=== PATIENT | male | born 1940 | race Hispanic/Latino ===

== ENCOUNTER 2018-07-19 06:23 | Day surgery (SDC) | payer MEDICARE ==
[2018-07-19] MEDS ORDERED: NACL 0.9% 1000 ML 1,000 ML IV SCH (07:00)
[2018-07-19] MEDS ORDERED: HURRICAINE ONE 20% TOPICAL SPRAY MM NR (07:00)
[2018-07-19 07:25] LABS: Basophils # (Auto) 0.1 K/mm3 (0.0-0.1); Basophils % (Auto) 1.1 % (0.0-1.8); Eosinophils # (Auto) 0.2 K/mm3 (0.0-0.4); Eosinophils % (Auto) 2.5 % (0.0-4.3); Hematocrit 41.7 % (35.5-45.6); Lymphocytes # (Auto) 2.3 K/mm3 (1.2-5.4); Lymphocytes % (Auto) 36.7 % (13.4-35.0); Mean Corpuscular HGB Conc 34 % (32-34); Mean Corpuscular Volume 95 fl (84-94); Monocytes # (Auto) 0.8 K/mm3 (0.0-0.8); Monocytes % (Auto) 13.4 % (0.0-7.3); Platelet Count 294 K/mm3 (140-440); Red Cell Distribution Width 14.5 % (13.2-15.2)
[2018-07-19 07:33] LABS: INR 0.97 (0.87-1.13); Partial Thromboplastin Time 21.6 Sec. (24.2-36.6)
[2018-07-19 07:42] LABS: BUN/Creatinine Ratio 10; Blood Urea Nitrogen 11 mg/dL (9-20); Calcium 9.1 mg/dL (8.4-10.2); Hemolysis Index 21
[2018-07-19] MEDS ORDERED: DIPRIVAN 10 MG/ML IV ONE (08:53)
[2018-07-19] MEDS ORDERED: DECADRON ONE (08:53)
[2018-07-19] MEDS ORDERED: VERSED ONE (08:53)
[2018-07-19] MEDS ORDERED: ZOFRAN ONE (08:53)
[2018-07-19] MEDS ORDERED: AMIDATE IV ONE (08:53)
--- NOTE | 2018-07-19 09:07 | Anesthesia Consultation ---
Anesthesia Consult and Med Hx - Airway Anesthetic Teeth Evaluation: Good ROM Head & Neck: Adequate Mental/Hyoid Distance: Adequate Mallampati Class: Class III Intubation Access Assessment: Probably Good - Pulmonary Exam CTA: Yes - Cardiac Exam Cardiac Exam: No Murmur - Pre-Operative Health Status ASA Pre-Surgery Classification: ASA3 Proposed Anesthetic Plan: MAC - Pulmonary Hx Smoking: Yes (ex smoker ) Hx Asthma: No Hx Respiratory Symptoms: No SOB: No COPD: No Home Oxygen Therapy: No Hx Pneumonia: No Hx Sleep Apnea: No - Cardiovascular System Hx Hypertension: Yes - Central Nervous System Hx Psychiatric Problems: Yes - Endocrine Hx Hypothyroidism: Yes - Other Systems Hx Cancer: No
--- NOTE | 2018-07-19 09:08 | Anesthesia Day of Surgery ---
Anesthesia Day of Surgery - Day of Surgery Patient Examined: Yes Patient H&P Reviewed: Yes Patient is NPO: Yes Beta Blockers: Yes Cardiac Clearance: No Pulmonary Clearance: No
--- NOTE | 2018-07-19 10:39 | Short Stay Summary ---
Short Stay Documentation Date of service: 07/19/18 - History H&P: obtained from office - Allergies and Medications Current Medications: Allergies No Known Allergies Allergy (Unverified 07/19/18 06:23) Home Medications Medication Instructions Recorded Confirmed Last Taken Type Apixaban [Eliquis] 5 mg PO BID 07/19/18 07/19/18 07/19/18 05:00 History 5mg Digoxin 125 mcg PO DAILY 07/19/18 07/19/18 07/18/18 History 125mcg Levothyroxine [Synthroid] 50 mcg PO DAILY 07/19/18 07/19/18 07/19/18 04:30 History 50mcg Metoprolol Xl [Metoprolol 50 mg PO DAILY 07/19/18 07/19/18 07/18/18 History SUCCINATE ER TAB] 50mg Tamsulosin [Flomax] 0.4 mg PO DAILY 07/19/18 07/19/18 07/18/18 History 0.4mg Venlafaxine HCl [Venlafaxine ER] 2 tab PO DAILY 07/19/18 07/19/18 07/18/18 History 2 tab Active Medications Benzocaine (Hurricaine One 20% Topical Coleman) 3 spray MM PREOP NR Stop: 07/19/18 23:45 Last Admin: 07/19/18 09:42 Dose: 3 spray Documented by: Sodium Chloride (Nacl 0.9% 1000 Ml) 1,000 mls @ 42 mls/hr IV DIRECT YASHIRA - Brief post op/procedure progress note Date of procedure: 07/19/18 Pre-op diagnosis: afib Post-op diagnosis: other (nsr) Procedure: see carolyn and cardioversion report Anesthesia: local Estimated blood loss: none Pathology: none - Disposition Condition at discharge: Good - Discharge Diagnoses (1) Afib Status: Chronic Qualifiers: Atrial fibrillation type: persistent Qualified Code(s): I48.1 - Persistent atrial fibrillation Short Stay Discharge Plan Activity: advance as tolerated Diet: low fat Follow up with: BOOKER DRIVER MD [Primary Care Provider] - 7 Days
--- NOTE | 2018-07-19 12:20 | Procedure Note ---
LINDA/CARDIOVERSION REPORT CLINICAL INFORMATION: This is a 78-year-old gentleman with atrial fibrillation. Normal left ventricle function, mild left atrial enlargement, transthoracic, here for a LINDA cardioversion. Anesthesia as per the anesthesiologist. THE patient had a LINDA probe was successfully passed through, which showed normal LV size and function. Left atrium is mildly dilated with no clots in left atrial and left atrial appendage, decreased velocities in the left atrial appendage. Left pulmonary vein was visualized, which is normal with normal pulse wave Doppler. Mitral valve is mildly thickened and noncalcified, [id number] mitral regurgitation. No vegetation is noted. Aortic valve is trileaflet, mildly thickened, no vegetation, no regurgitation or stenosis. Tricuspid valve, no vegetation. Pulmonary valve, no vegetation. Interatrial septum is intact with negative color Doppler and bubble study. Aorta is grade 1 atheroma plaque from the ascending to the arch of descending up to the thoracic. There was no cardiac chondrification for cardioversion. So, LINDA probe was successfully removed. SUMMARY: 1. Normal LV size and function. No clots seen in left atrial or left atrial appendage. Decreased velocities in left atrial appendage. Normal left pulmonary vein. [id number] mitral regurgitation, no vegetations on the valves. 2. Aortic valve trileaflet, mild thickening. No aortic regurgitation. CARDIOVERSION REPORT: The patient was successfully cardioverted with 300 joules, converted from AFib to sinus vesna. The patient tolerated the procedure and postop care. Discussed this with the patient and the patient's sister in detail. JOB# [id number] VERONA/HAVEN HERNÁNDEZ
[2018-07-19 12:29] VITALS: BP 122/73
== END 2018-07-19 12:45 | disposition home or self-care (01) ==
LOC: CATHLABREC 06:23 → EDSTATUS 09:30 → CATHLABREC 12:45
PROVIDERS: ATTEND Internal Medicine
DX: I34.0 Nonrheumatic mitral (valve) insufficiency (principal); I48.1 Persistent atrial fibrillation; I51.7 Cardiomegaly; E78.00 Pure hypercholesterolemia, unspecified; I10 Essential (primary) hypertension; M19.90 Unspecified osteoarthritis, unspecified site; E03.9 Hypothyroidism, unspecified; F32.9 Major depressive disorder, single episode, unspecified; Z98.890 Other specified postprocedural states; Z79.899 Other long term (current) drug therapy; Z87.891 Personal history of nicotine dependence; Z90.49 Acquired absence of other specified parts of digestive tract; Z82.61 Family history of arthritis; Z83.49 Family history of other endocrine, nutritional and metabolic diseases; Z82.49 Family history of ischemic heart disease and other diseases of the circulatory system
CPT/HCPCS: 36415; 80048; 85025; 85610; 85730; 93005; 93010; 93312; 93320; 93325; J1100; J2250; J2405; J2704; J7030